=== PATIENT | male | born 1985 | race African-American/Black ===

== ENCOUNTER 2017-01-08 11:02 | Emergency (ER) | payer SELFPAY ==
[2017-01-08 11:10] VITALS: BP 160/61; PULSE 73; TEMP 98; BMI 34.8
[2017-01-08 11:51] LABS: URINE APPEARANCE CLEAR; URINE BILIRUBIN NEGATIVE (NEGATIVE); URINE BLOOD NEGATIVE (NEGATIVE); URINE COLOR LTYELLOW; URINE GLUCOSE (UA) NEGATIVE (NEGATIVE); URINE KETONE NEGATIVE (NEGATIVE); URINE LEUK ESTERASE NEGATIVE (NEGATIVE); URINE NITRITE NEGATIVE (NEGATIVE); URINE PROTEIN NEGATIVE (NEGATIVE); URINE UROBILINOGEN NEGATIVE E.U./dl (0.2-1.0)
--- NOTE | 2017-01-08 12:26 | PDOC ---
History of Present Illness - General Chief Complaint: Rash Stated Complaint: RASH Time Seen by Provider: 01/08/17 11:16 History Source: Patient Exam Limitations: No Limitations - History of Present Illness Initial Comments: 01/08/17 12:20 31 year old male with history of testicular torsion no surgical history presents with rash to groin x 1 week. Reports rash itchy. Denies frequency in urination but complains of being sweaty. States noticed stripping in between toes. Denies penile discharge or dysuria 01/08/17 12:22 Timing/Duration: reports: week Severity: Yes: mild Location: reports: feet, genitalia Respiratory Risk Factors: reports: no cause identified Modifying Factors: improves with: scratching, other (bacitracin, and aveeno lotion) Associated Symptoms: reports: denies symptoms Past History - Travel Traveled outside of the country in the last 30 days: No Close contact w/someone who was outside of country & ill: No - Past Medical History Allergies/Adverse Reactions: Allergies Allergy/AdvReac Type Severity Reaction Status Date / Time No Known Allergies Allergy Verified 01/08/17 11:10 Home Medications: Ambulatory Orders No Home Medications 0 dose .ROUTE UTDICT 04/09/13 Clotrimazole [Jock Itch] 15 gm TP BID #1 cream..g. 01/08/17 Nystatin Powder [Nystop Powder -] 15 gm TP BID #1 powder 01/08/17 - Psycho/Social/Smoking Cessation Hx Anxiety: No Suicidal Ideation: No Smoking Status: No Smoking History: Never smoked Number of Cigarettes Smoked Daily: 0 Information on smoking cessation initiated: No Substance Use Type: None Review of Systems - Review of Systems Able to Perform ROS?: Yes Is the patient limited German proficient: No Constitutional: No: Chills, Fever HEENTM: No: Nose Congestion, Tinnitus, Mouth Pain Respiratory: No: Orthopnea, Stridor, Wheezing Cardiac (ROS): No: Edema, Syncope, Chest Tightness Musculoskeletal: No: Back Pain, Joint Pain, Neck Pain, Joint Stiffness Integumentary: Yes: Dryness, Pruritus, Rash Neurological: No: Headache, Numbness Psychiatric: No: Stressors *Physical Exam - Vital Signs Last Vital Signs Temp Pulse Resp BP Pulse Ox 98 F 73 18 160/61 99 01/08/17 11:07 01/08/17 11:07 01/08/17 11:07 01/08/17 11:07 01/08/17 11:07 - Physical Exam General Appearance: Yes: Nourished, Appropriately Dressed. No: Apparent Distress HEENT: positive: EOMI, BARRY, TMs Normal, Pharynx Normal. negative: Normal ENT Inspection Neck: positive: Supple. negative: Lymphadenopathy (R), Lymphadenopathy (L) Respiratory/Chest: positive: Lungs Clear. negative: Chest Tender Cardiovascular: positive: Regular Rhythm, Regular Rate, S1, S2 Integumentary: positive: Rash, Other (fungal rash to right and left groin that extends to inner thighs. Rash dry silvery and scaly. Also desquamation of skin between toes. 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, Fully Oriented, Alert, Normal Response, Motor Strength 12/28 ED Treatment Course - ADDITIONAL ORDERS Additional order review: Laboratory Results 01/08/17 11:39 Urine Color Ltyellow Urine Appearance Clear Urine pH 5.0 Urine Protein Negative Urine Glucose (UA) Negative Urine Ketones Negative Urine Blood Negative Urine Nitrite Negative Urine Bilirubin Negative Urine Urobilinogen Negative Ur Leukocyte Esterase Negative Medical Decision Making - Medical Decision Making 01/08/17 12:25 31 year old male with tinea cruris and julio pedis gc/chlamydia sent Rx: clotrimazole and nystatin powder *DC/Admit/Observation/Transfer Diagnosis at time of Disposition: Tinea cruris Tinea pedis Qualifiers: Laterality: bilateral Qualified Code(s): B35.3 - Tinea pedis - Discharge Dispostion Admit: No - Prescriptions Prescriptions: Clotrimazole [Jock Itch] 15 gm TP BID #1 cream..g. Nystatin Powder [Nystop Powder -] 15 gm TP BID #1 powder - Patient Instructions Additional Instructions: Please avoid hot showers, shower in warm tepid water. May use non fragrant lotion and dry completely. Use medication as described. Please call primary physician for follow up appointment - Post Discharge Activity Work/School Note: Back to Work
== END 2017-01-08 13:17 | disposition home or self-care (01) ==
LOC: JERFT 11:02
DX: B35.6 Tinea cruris (principal); B35.3 Tinea pedis
CPT/HCPCS: 36415; 81003; 87086; 87491; 87591; 99281-25